=== PATIENT | female | born 1965 | race Caucasian/White ===

== ENCOUNTER 2017-03-04 17:15 | Inpatient (IN) ==
[2017-03-04] MEDS ORDERED: VANCOMYCIN 1 GM/NS 1 GM/250 ML IVPB IV ONE (18:01)
[2017-03-04] MEDS ORDERED: ZOSYN 4.5 GM in NS 100 ML IV ONE (18:01)
[2017-03-04] MEDS ORDERED: ALBUTEROL NEB INH ONE (18:05)
[2017-03-04 18:11] LABS: BE 6.8 mmoll (-3.0-3.0); BLOOD TYPE ARTERIAL; DRAW SITE L RADIAL; METHB 1.5 % (0.0-1.5); O2(CT) 15.9 mL/dL (15.0-23.0); PCO2(98.6) 49 mmHg (35-45); PO2(98.6) 56 mmHg (60-100); SAMPLE BLOOD; SAO2 94.6 % (95.0-100.0); THB 14.3 g/dL (11.5-17.4); pH(98.6) 7.43 (7.35-7.45)
[2017-03-04 18:13] LABS: MODALITY CANNULA
[2017-03-04 18:14] LABS: ALLEN TEST YES
[2017-03-04] MEDS ORDERED: NS IV SCH (18:15)
[2017-03-04] MEDS ORDERED: SOLU MEDROL IV SCH (18:15)
[2017-03-04] MEDS ORDERED: ALBUTEROL NEB ONE (18:31)
--- NOTE | 2017-03-04 18:40 | Diag Imaging Result Doc PS360 ---
EXAM: CHEST-2 VIEWS HISTORY: Shortness of breath TECHNIQUE: Two views COMPARISON: None. FINDINGS: There is atelectasis with a small infiltrate in the right base with a small pleural effusion. Heart is not enlarged. The vessels are not distended. The left lung is well expanded and clear. IMPRESSION: Small right basilar infiltrate with atelectasis and a small effusion. Electronically signed by Stewart Emmanuel 03/04/2017 6:37 PM
[2017-03-04 18:52] LABS: MANUAL DIFF NEEDED? NO
[2017-03-04 18:54] LABS: BASO% 0.6 % (0.0-0.8); EOS# 0.14 X1000 (0.0-0.7); EOS% 1.5 % (0.0-10.0); HEMATOCRIT 42.5 % (37.0-47.0); HEMOGLOBIN 14.2 g/dL (12.0-16.0); IMM GRAN# 0.04 X1000 (0.0-0.04); IMM GRAN% 0.4 % (0.0-0.5); LYMPH# 4.12 X1000 (1.2-3.4); LYMPH% 45.6 % (20.5-51.1); MCHC 33.4 g/dL (33-37); MCV 77.7 FL (81-99); MONO# 0.53 X1000 (0.11-0.59); MONO% 5.9 % (1.7-9.3); MPV 11.7 FL (7.4-10.4); PLT 183 X1000 (130-400); RBC 5.47 XMIL (4.2-5.4)
[2017-03-04 19:08] LABS: AGAP 12; ALBUMIN 3.8 g/dL (3.5-5.0); ALKALINE PHOSPHATASE 103 U/L (32-104); BUN 8 mg/dL (8-22); CHLORIDE 100 mmol/L (98-107); CK PROFILE 52 U/L (24-173); COSMO 274; GOT 21 U/L (10-30); GPT 19 U/L (10-36); INR 0.9 (0.86-1.15); MAGNESIUM 1.9 mg/dL (1.5-2.7); POTASSIUM 4.1 mmol/L (3.5-5.1); PROTIME 12.9 Seconds (12.1-15.5); PTT PL 34.3 Seconds (22.6-43.9); SODIUM 138 mmol/L (136-145); TCO2 26 mmol/L (25-35); TOTAL PROTEIN 7.5 g/dL (6.3-8.3)
[2017-03-04 20:29] LABS: BE 4.5 mmoll (-3.0-3.0); BLOOD TYPE ARTERIAL; DRAW SITE L BRACHIAL; METHB 1.4 % (0.0-1.5); O2(CT) 16.1 mL/dL (15.0-23.0); PCO2(98.6) 49 mmHg (35-45); SAMPLE BLOOD; SAO2 91.8 % (95.0-100.0); THB 14.3 g/dL (11.5-17.4)
[2017-03-04 20:59] LABS: MODALITY CANNULA; PO2(98.6) 49 mmHg (60-100)
[2017-03-04 21:00] LABS: ALLEN TEST NO
[2017-03-04] MEDS ORDERED: REMERON PO SCH ×2 (22:45→22:46)
[2017-03-04] MEDS: SOLU-MEDROL IV SCH (22:52)
[2017-03-04] MEDS: KLONOPIN PO SCH (23:00)
[2017-03-04] MEDS: MINIPRESS PO SCH (23:00)
[2017-03-04] MEDS: SEROQUEL PO SCH (23:00)
[2017-03-04] MEDS: REMERON PO SCH (23:00)
--- NOTE | 2017-03-05 00:04 | EKG Report ---
Test Performed on : 03/04/2017 5:59:48 PM Test Reason : cp Blood Pressure : / mmHG Vent. Rate : 095 BPM Atrial Rate : 095 BPM P-R Int : 188 ms QRS Dur : 088 ms QT Int : 374 ms P-R-T Axes : 049 015 053 degrees QTc Int : 469 ms Normal sinus rhythm. Normal ECG No previous ECGs available Unconfirmed Result
[2017-03-05] MEDS ORDERED: ZOSYN 4.5 GM in NS 100 ML IV SCH ×2 (01:30→08:00)
[2017-03-05] MEDS: SOLU-MEDROL IV SCH ×3 (01:38→16:14)
[2017-03-05 02:24] LABS: URINE CULTURE PL NEEDED? NO
[2017-03-05 02:36] LABS: BILIRUBIN URINE NEGATIVE (NEGATIVE); BLOOD URINE NEGATIVE (NEGATIVE); CLARITY CLEAR (CLEAR); COLOR YELLOW; GLUCOSE URINE NEGATIVE (NEGATIVE); LEUKOCYTES URINE NEGATIVE (NEGATIVE); NITRITE URINE NEGATIVE (NEGATIVE); PROTEIN URINE NEGATIVE (NEGATIVE); SP GRAVITY URINE 1.005; UROBILINOGEN URINE NORMAL
[2017-03-05 02:41] LABS: URINE EPITHELIAL CELLS <10 /HPF (<10); URINE SOURCE CLEAN CATCH; URINE WBC <10 /HPF (<10)
[2017-03-05] MEDS: ZOSYN 4.5 GM in NS 100 ML IV SCH ×3 (07:49→20:32)
[2017-03-05] MEDS ORDERED: KLONOPIN PO PRN (08:05)
[2017-03-05] MEDS ORDERED: VANCOMYCIN 1 GM/NS 1 GM/250 ML IVPB IV SCH (09:00)
[2017-03-05] MEDS ORDERED: PRISTIQ ER PO SCH (09:00)
[2017-03-05] MEDS: GLUCOPHAGE XR PO SCH ×2 (09:42→16:13)
[2017-03-05] MEDS: NEXIUM PO SCH ×2 (09:42→20:33)
[2017-03-05] MEDS: NON-FORMULARY MED PO SCH (09:43)
[2017-03-05] MEDS: JANUVIA PO SCH (09:43)
[2017-03-05] MEDS: NEURONTIN PO SCH ×4 (09:43→20:32)
[2017-03-05] MEDS: KLONOPIN PO SCH ×2 (09:43→20:32)
[2017-03-05] MEDS: MOVANTIK PO SCH (09:44)
[2017-03-05] MEDS: HUMALOG DOSE (PARKWAY) SUBQ SCH ×7 (09:44→20:33)
[2017-03-05] MEDS ORDERED: VANCOMYCIN IV PER PHARMACY MISC SCH (13:45)
[2017-03-05] MEDS: DUONEB (A & A) INH SCH ×3 (16:25→23:03)
[2017-03-05] MEDS: NORCO-7.5 PO PRN ×2 (16:42→21:23)
[2017-03-05] MEDS ORDERED: FLEET ENEMA PR ONE (19:46)
[2017-03-05] MEDS ORDERED: ZOFRAN IV PRN (20:01)
[2017-03-05] MEDS: MINIPRESS PO SCH (20:32)
[2017-03-05] MEDS: LACTULOSE PO SCH (20:32)
[2017-03-05] MEDS: SEROQUEL PO SCH (20:33)
[2017-03-05] MEDS: REMERON PO SCH (20:33)
[2017-03-05] MEDS ORDERED: MIRTAZAPINE 45 MG PO SCH (21:00)
[2017-03-05] MEDS ORDERED: SEROQUEL PO SCH (21:00)
[2017-03-05] MEDS ORDERED: MINIPRESS PO SCH (21:00)
[2017-03-05] MEDS: VANCOMYCIN 1,850 MG in NS 500 ML IV SCH (21:38)
[2017-03-06] MEDS: ZOSYN 4.5 GM in NS 100 ML IV SCH ×4 (01:11→20:12)
[2017-03-06] MEDS: SOLU-MEDROL IV SCH ×3 (01:11→16:40)
[2017-03-06] MEDS: DUONEB (A & A) INH SCH ×5 (03:00→19:20)
[2017-03-06] MEDS: KLONOPIN PO SCH ×3 (04:38→20:39)
[2017-03-06] MEDS: HUMALOG DOSE (PARKWAY) SUBQ SCH ×7 (06:02→20:39)
[2017-03-06] MEDS: NEXIUM PO SCH ×2 (06:02→20:40)
[2017-03-06] MEDS: NORCO-7.5 PO PRN ×3 (06:10→16:40)
[2017-03-06] MEDS: MOVANTIK PO SCH (06:35)
[2017-03-06 06:42] LABS: HEMATOCRIT 41.4 % (37.0-47.0); HEMOGLOBIN 13.2 g/dL (12.0-16.0); MCH 25.4 PG (27-31); MCHC 31.9 g/dL (33-37); MCV 79.8 FL (81-99); MPV 11.7 FL (7.4-10.4); RBC 5.19 XMIL (4.2-5.4)
[2017-03-06 07:01] LABS: AGAP 16; ALBUMIN 3.8 g/dL (3.5-5.0); ALKALINE PHOSPHATASE 101 U/L (32-104); BUN 11 mg/dL (8-22); CALCIUM 8.7 mg/dL (8.8-10.2); CHLORIDE 98 mmol/L (98-107); COSMO 286; GOT 25 U/L (10-30); GPT 26 U/L (10-36); MAGNESIUM 2.1 mg/dL (1.5-2.7); POTASSIUM 4.2 mmol/L (3.5-5.1); SODIUM 136 mmol/L (136-145); TCO2 22 mmol/L (25-35); TOTAL PROTEIN 7.4 g/dL (6.3-8.3)
[2017-03-06 07:21] LABS: HEMOGLOBIN A1C 9.6 % (4.8-6.0)
[2017-03-06] MEDS: GLUCOPHAGE XR PO SCH ×2 (09:06→16:40)
[2017-03-06] MEDS: JANUVIA PO SCH (09:06)
[2017-03-06] MEDS: NEURONTIN PO SCH ×4 (09:07→20:40)
[2017-03-06] MEDS: VANCOMYCIN 1,850 MG in NS 500 ML IV SCH ×2 (09:07→21:24)
[2017-03-06] MEDS: LACTULOSE PO SCH ×2 (09:16→20:39)
[2017-03-06] MEDS: NON-FORMULARY MED PO SCH (12:44)
[2017-03-06] MEDS: MINIPRESS PO SCH (20:39)
[2017-03-06] MEDS: SEROQUEL PO SCH (20:40)
[2017-03-06] MEDS: REMERON PO SCH (20:40)
[2017-03-07] MEDS: DUONEB (A & A) INH SCH ×7 (00:15→22:58)
[2017-03-07] MEDS: SOLU-MEDROL IV SCH ×3 (01:10→18:13)
[2017-03-07] MEDS: ZOSYN 4.5 GM in NS 100 ML IV SCH ×4 (01:11→21:13)
[2017-03-07] MEDS: KLONOPIN PO SCH ×3 (04:21→21:14)
[2017-03-07] MEDS: MOVANTIK PO SCH (06:13)
[2017-03-07] MEDS: HUMALOG DOSE (PARKWAY) SUBQ SCH ×7 (06:14→21:13)
[2017-03-07] MEDS: NEXIUM PO SCH ×2 (06:28→21:14)
[2017-03-07 06:33] LABS: HEMATOCRIT 39.6 % (37.0-47.0); HEMOGLOBIN 12.4 g/dL (12.0-16.0); MCH 25.3 PG (27-31); MCHC 31.3 g/dL (33-37); MCV 80.8 FL (81-99); MPV 10.7 FL (7.4-10.4); RBC 4.9 XMIL (4.2-5.4)
[2017-03-07 07:01] LABS: HEMOGLOBIN A1C 9.6 % (4.8-6.0)
[2017-03-07 07:06] LABS: AGAP 15; ALBUMIN 3.6 g/dL (3.5-5.0); ALKALINE PHOSPHATASE 85 U/L (32-104); BUN 4 mg/dL (8-22); CALCIUM 8.2 mg/dL (8.8-10.2); CHLORIDE 99 mmol/L (98-107); COSMO 287; GOT 14 U/L (10-30); GPT 23 U/L (10-36); MAGNESIUM 1.8 mg/dL (1.5-2.7); POTASSIUM 4.1 mmol/L (3.5-5.1); SODIUM 137 mmol/L (136-145); TCO2 23 mmol/L (25-35); TOTAL PROTEIN 6.5 g/dL (6.3-8.3)
[2017-03-07] MEDS: LACTULOSE PO SCH ×2 (08:45→21:12)
[2017-03-07] MEDS: GLUCOPHAGE XR PO SCH ×2 (08:45→17:30)
[2017-03-07] MEDS: PRISTIQ ER PO SCH (08:45)
[2017-03-07] MEDS: NEURONTIN PO SCH ×4 (08:45→21:14)
[2017-03-07] MEDS: JANUVIA PO SCH (08:45)
[2017-03-07] MEDS: LANTUS INSULIN (PARKWAY) SUBQ SCH (10:48)
[2017-03-07] MEDS: NORCO-7.5 PO PRN (13:41)
[2017-03-07] MEDS: SEROQUEL PO SCH (21:13)
[2017-03-07] MEDS: MINIPRESS PO SCH (21:14)
[2017-03-07] MEDS: REMERON PO SCH (21:14)
[2017-03-08] MEDS: SOLU-MEDROL IV SCH ×2 (02:39→10:08)
[2017-03-08] MEDS: ZOSYN 4.5 GM in NS 100 ML IV SCH ×3 (02:39→14:27)
[2017-03-08] MEDS: DUONEB (A & A) INH SCH ×4 (03:43→15:37)
[2017-03-08] MEDS: MOVANTIK PO SCH (06:51)
[2017-03-08] MEDS: NEXIUM PO SCH (06:51)
[2017-03-08] MEDS: KLONOPIN PO SCH (06:51)
[2017-03-08] MEDS: HUMALOG DOSE (PARKWAY) SUBQ SCH ×4 (06:51→12:08)
[2017-03-08] MEDS: GLUCOPHAGE XR PO SCH (08:28)
[2017-03-08] MEDS: PRISTIQ ER PO SCH (10:08)
[2017-03-08] MEDS: LANTUS INSULIN (PARKWAY) SUBQ SCH (10:08)
[2017-03-08] MEDS: JANUVIA PO SCH (10:09)
[2017-03-08] MEDS: NEURONTIN PO SCH ×2 (10:09→12:15)
[2017-03-08] MEDS: LACTULOSE PO SCH (10:22)
[2017-03-08] MEDS: NORCO-7.5 PO PRN (12:15)
[2017-03-08 12:34] VITALS: BP 146/72
[2017-03-08] MEDS ORDERED: LANTUS INSULIN (PARKWAY) SUBQ SCH (15:38)
[2017-03-09] MEDS ORDERED: PREDNISONE PO SCH (09:00)
[2017-03-09] MEDS ORDERED: LANTUS INSULIN (PARKWAY) SUBQ SCH (09:00)
[2017-03-09] MEDS ORDERED: ZITHROMAX PO SCH (09:00)
== END 2017-03-08 17:30 | disposition home or self-care (01) ==
LOC: P.ED 17:15 → SUATTDRO 17:16 → P.ICU 17:16 → P.MEDSURG 03-07 06:14
PROVIDERS: ATTEND Internal Medicine